=== PATIENT | female | born 1950 | race Caucasian/White ===

== ENCOUNTER 2024-06-15 10:51 | Day surgery (SDC) | payer MEDICARE, OTHER ==
[2024-06-12 11:53] VITALS: BMI 28.6
[2024-06-15 12:11] LABS: #Basophils 0.06 10x3/uL (0.0-0.2); #Eosinophils 0.21 10x3/uL (0.0-0.5); #Monocytes 0.56 10x3/uL (0.0-1.1); #Neutrophils 2.94 10x3/uL (1.5-8.4); %Basophils 1.1 % (0.0-2.0); %Eosinophils 3.8 % (0.0-6.0); %Lymphocytes 31.4 % (18.0-47.0); %Monocytes 10.2 % (0.0-10.0); %Neutrophils 53.3 % (40.0-75.0); Hematocrit 39.6 % (34.9-44.5); Mean Corpuscular HGB CONC 32.8 g/dL (32.0-36.0); Mean Corpuscular Hemoglobin 29.1 pg (27.0-33.0); Mean Corpuscular Volume 88.8 fL (81.6-98.3); Mean Platelet Volume 11.3 fL (7.4-10.4); Platelet Count 244 10x3/uL (150-450); RBC Distribution Width 12.3 % (11.5-14.5); Red Blood Cell (RBC) Count 4.46 10x6/uL (3.90-5.03); White Blood Cell (WBC) Count 5.5 10x3/uL (3.5-10.5)
[2024-06-15 12:26] LABS: Anion Gap 12 mmol/L (10-20); BUN (Urea Nitrogen) 13 mg/dL (9.8-20.1); Calc. Creatinine Clearance 73 mL/min (70-130); Calcium 10.1 mg/dL (7.8-10.44); Carbon Dioxide 26 mmol/L (23-31); Chloride 108 mmol/L (98-107); Estimated GFR 75; Glucose 127 mg/dL (83-110); Potassium 4.4 mmol/L (3.5-5.1); Sodium 142 mmol/L (136-145)
[2024-06-15] MEDS ORDERED: Ketorolac Tromethamine 30 MG (1 mL) VIAL ONE (12:35)
[2024-06-15] MEDS ORDERED: Acetaminophen 500 MG TAB ONE (12:35)
[2024-06-15] MEDS ORDERED: Bupivacaine/Epinephrine 0.25% 30 ML VIAL ONE (12:55)
[2024-06-15] MEDS ORDERED: CEFAZOLIN 2 GM VIAL ONE (13:38)
[2024-06-15] MEDS ORDERED: fentaNYL 50 mcg/mL 1 mL Vial ONE (13:44)
== END 2024-06-15 15:18 | disposition home or self-care (01) ==
LOC: CSHSDC 10:51
PROVIDERS: ATTEND Specialist
PROC: 0JH63WZ Insertion of Totally Implantable Vascular Access Device into Chest Subcutaneous Tissue and Fascia, Percutaneous Approach (ICD-10-PCS; principal; 2024-06-15)
DX: C25.9 Malignant neoplasm of pancreas, unspecified (principal); E11.9 Type 2 diabetes mellitus without complications; Z88.8 Allergy status to other drugs, medicaments and biological substances; Z79.4 Long term (current) use of insulin; Z79.84 Long term (current) use of oral hypoglycemic drugs; Z79.899 Other long term (current) drug therapy
CPT/HCPCS: 36561; 71045; 80048; 85025; 93005; C1788; J1642; J1885; J3010; 36415; 93010

== ENCOUNTER 2024-06-23 14:25 | Outpatient (CLI) | payer MEDICARE | END 2024-06-23 14:26 | disposition home or self-care (01) | LOC: CSHULT 14:25 | PROVIDERS: ATTEND Internal Medicine | DX: C25.0 Malignant neoplasm of head of pancreas (principal); E04.1 Nontoxic single thyroid nodule; I51.7 Cardiomegaly; R93.1 Abnormal findings on diagnostic imaging of heart and coronary circulation | CPT/HCPCS: 93306 ==

== ENCOUNTER 2025-02-02 13:04 | Outpatient (CLI) | payer MEDICARE | END 2025-02-02 13:05 | disposition home or self-care (01) | LOC: CSHWCC 13:04 | PROVIDERS: ATTEND Nurse Practitioner Family | DX: E11.621 Type 2 diabetes mellitus with foot ulcer (principal); L97.512 Non-pressure chronic ulcer of other part of right foot with fat layer exposed; C25.9 Malignant neoplasm of pancreas, unspecified | CPT/HCPCS: 15275; Q4186 ==

== ENCOUNTER 2025-02-12 14:01 | Outpatient (CLI) | payer MEDICARE | END 2025-02-12 14:02 | disposition home or self-care (01) | LOC: CSHWCC 14:01 | PROVIDERS: ATTEND Nurse Practitioner Family | DX: E11.621 Type 2 diabetes mellitus with foot ulcer (principal); L97.512 Non-pressure chronic ulcer of other part of right foot with fat layer exposed; C25.9 Malignant neoplasm of pancreas, unspecified | CPT/HCPCS: 15275; Q4186 ==

== ENCOUNTER 2025-02-19 14:22 | Outpatient (CLI) | payer MEDICARE | END 2025-02-19 14:23 | disposition home or self-care (01) | LOC: CSHWCC 14:22 | PROVIDERS: ATTEND Nurse Practitioner Family | DX: E11.621 Type 2 diabetes mellitus with foot ulcer (principal); L97.512 Non-pressure chronic ulcer of other part of right foot with fat layer exposed; C25.9 Malignant neoplasm of pancreas, unspecified | CPT/HCPCS: 15275; Q4186 ==

== ENCOUNTER 2025-02-26 14:26 | Outpatient (CLI) | payer MEDICARE | END 2025-02-26 14:27 | disposition home or self-care (01) | LOC: CSHWCC 14:26 | PROVIDERS: ATTEND Nurse Practitioner Family | DX: E11.621 Type 2 diabetes mellitus with foot ulcer (principal); L97.512 Non-pressure chronic ulcer of other part of right foot with fat layer exposed; C25.9 Malignant neoplasm of pancreas, unspecified ==

== ENCOUNTER 2025-03-12 14:22 | Outpatient (CLI) | payer MEDICARE | END 2025-03-12 14:23 | disposition home or self-care (01) | LOC: CSHWCC 14:22 | PROVIDERS: ATTEND Nurse Practitioner Family | DX: E11.621 Type 2 diabetes mellitus with foot ulcer (principal); L97.512 Non-pressure chronic ulcer of other part of right foot with fat layer exposed; C25.9 Malignant neoplasm of pancreas, unspecified | CPT/HCPCS: 99213; G0463 ==